=== PATIENT | male | born 1985 | race Two or more races ===

== ENCOUNTER 2017-04-06 13:19 | Emergency (ER) | payer OTHER ==
[2017-04-06] MEDS ORDERED: OXYCODONE-ACETAMINOPHEN 5-325 MG TABLET PO ONE (13:35)
[2017-04-06 13:37] VITALS: BP 133/96
--- NOTE | 2017-04-06 13:39 | ER Document Report ---
ED Medical Screen (RME) - General Stated Complaint: CHEST/ARM INJURY Time Seen by Provider: 04/06/17 13:35 Mode of Arrival: Wheelchair Information source: Patient - HPI Patient complains to provider of: Right-sided chest wall pain Onset: Just prior to arrival Onset/Duration: Sudden Quality of pain: Achy Severity: Moderate Pain Level: 5 Associated Symptoms: Shortness of breath Exacerbated by: Movement, Coughing, Deep breathing Relieved by: Denies Similar symptoms previously: No Recently seen / treated by doctor: No Notes: 04/06/17 13:38 Patient is a 31-year-old male who presents to the emergency room status post injury causing pain to his right anterior chest wall, patient was at work, he was taking a break, when a pallet fell over landing directly across his chest
[2017-04-06] MEDS ORDERED: DIPH/PERTUSS(ACELL)/TETANUS VAC/PF 0.5 ML SYR (>=10YO) IM ONE (13:43)
--- NOTE | 2017-04-06 14:33 | RADIOLOGY REPORT (SQ) ---
EXAM DESCRIPTION: SHOULDER LEFT 2 OR MORE VIEWS COMPLETED DATE/TIME: 04/06/2017 2:02 pm REASON FOR STUDY: injury COMPARISON: None. NUMBER OF VIEWS: Three views. TECHNIQUE: Internal rotation, external rotation, and Y view images acquired of the left shoulder. LIMITATIONS: None. FINDINGS: MINERALIZATION: Normal. BONES: No acute fracture or dislocation. No worrisome bone lesions. JOINTS: No dislocation. VISUALIZED LUNGS AND RIBS: No pneumothorax. No rib fracture. SOFT TISSUES: No radiopaque foreign body. OTHER: No other significant finding. IMPRESSION: NEGATIVE STUDY OF THE LEFT SHOULDER. NO RADIOGRAPHIC EVIDENCE OF ACUTE INJURY. TECHNICAL DOCUMENTATION: JOB ID: [id number] [employer]- All Rights Reserved
--- NOTE | 2017-04-06 14:35 | RADIOLOGY REPORT (SQ) ---
EXAM DESCRIPTION: RIBS RIGHT W/PA CHEST COMPLETED DATE/TIME: 04/06/2017 2:02 pm REASON FOR STUDY: INJURY COMPARISON: None. TECHNIQUE: Frontal view of the chest and additional views of the right ribs acquired. NUMBER OF VIEWS: Three view. LIMITATIONS: None. FINDINGS: FRONTAL CXR: No pneumothorax. No pleural effusion. No atelectasis or infiltrates. RIBS: No displaced rib fractures. No lytic or blastic bony lesions. OTHER: No other significant finding. IMPRESSION: NO PNEUMOTHORAX. NO DISPLACED RIB FRACTURES. COMMENT: SITE OF TRAUMA/COMPLAINT MARKED/STAMP COMPLETED: No TECHNICAL DOCUMENTATION: JOB ID: [id number] [employer]- All Rights Reserved
--- NOTE | 2017-04-06 15:54 | ER Document Report ---
ED General - General Chief Complaint: Blunt Trauma Stated Complaint: CHEST/ARM INJURY Time Seen by Provider: 04/06/17 13:35 Mode of Arrival: Wheelchair TRAVEL OUTSIDE OF THE [place] IN LAST 30 DAYS: No - HPI Patient complains to provider of: Chest wall pain shoulder pain Notes: Patient is coming in for evaluation chest wall pain shoulder pain. Patient is speaking and translation was obtained. Our registration personnel Ange. Patient was working when a stack of wooden pallets fell on the patient. Patient states they were pinned underneath him for some time patient is currently complaining of upper chest pain and upper shoulder pain and back pain. Denies any loss of consciousness. Patient is in no obvious distress upon my evaluation. - Related Data Allergies/Adverse Reactions: No Known Allergies Allergy (Verified 04/06/17 13:37) Past Medical History - General Information source: Patient - Social History Smoking Status: Never Smoker Chew tobacco use (# tins/day): No Frequency of alcohol use: None Family History: Reviewed & Not Pertinent Patient has suicidal ideation: No Patient has homicidal ideation: No Renal/ Medical History: Denies: Hx Peritoneal Dialysis Review of Systems - Review of Systems Constitutional: No symptoms reported EENT: No symptoms reported Cardiovascular: Chest pain - Wall pain Respiratory: No symptoms reported Gastrointestinal: No symptoms reported Genitourinary: No symptoms reported Male Genitourinary: No symptoms reported Musculoskeletal: No symptoms reported Skin: No symptoms reported Hematologic/Lymphatic: No symptoms reported Neurological/Psychological: No symptoms reported Physical Exam - Vital signs Vitals: Temp Pulse Resp BP Pulse Ox 98.5 F 101 H 24 H 133/96 H 99 04/06/17 13:32 04/06/17 13:32 04/06/17 13:32 04/06/17 13:32 04/06/17 13:32 Interpretation: Normal - General General appearance: Appears well, Alert - HEENT Head: Normocephalic, Atraumatic Eyes: Normal Pupils: PERRL - Respiratory Respiratory status: No respiratory distress Chest status: Tender - His palpation of the left chest also tender to palpation in the paraspinal muscles of the neck bilaterally in the midline tenderness. Patient has some abrasions to the right upper trapezius muscle no deformities. Breath sounds: Normal Chest palpation: Normal - Cardiovascular Rhythm: Regular Heart sounds: Normal auscultation Murmur: No - Abdominal Inspection: Normal Distension: No distension Bowel sounds: Normal Tenderness: Nontender Organomegaly: No organomegaly - Back Back: Normal, Nontender - Extremities General upper extremity: Normal inspection, Nontender, Normal color, Normal ROM , Normal temperature General lower extremity: Normal inspection, Nontender, Normal color, Normal ROM , Normal temperature, Normal weight bearing. No: Jeus's sign - Neurological Neuro grossly intact: Yes Cognition: Normal Orientation: AAOx4 Fletcher Coma Scale Eye Opening: Spontaneous Fletcher Coma Scale Verbal: Oriented Fletcher Coma Scale Motor: Obeys Commands Fletcher Coma Scale Total: 15 Speech: Normal Motor strength normal: LUE, RUE, LLE, RLE Sensory: Normal - Psychological Associated symptoms: Normal affect, Normal mood - Skin Skin Temperature: Warm Skin Moisture: Dry Skin Color: Normal Course - Re-evaluation Re-evalutation: 04/06/17 19:01 Coming in for evaluation of chest wall pain extremity pain after wooden pallets fell on. Patient x-rays are negative for any acute pathology. Patient will be discharged home with pain medications - Vital Signs Vital signs: Temp Pulse Resp BP Pulse Ox 98.5 F 101 H 24 H 133/96 H 99 04/06/17 13:32 04/06/17 13:32 04/06/17 13:32 04/06/17 13:32 04/06/17 13:32 Discharge - Discharge Clinical Impression: Multiple contusions, Chest wall pain Condition: Good Disposition: HOME, SELF-CARE Instructions: Chest Wall Pain ([facility]), Oral Narcotic Medication ([facility]), Anti- Inflammatory Medication ([facility]), Contusion ([facility]) Additional Instructions: Take medication as prescribed. Return to the ER symptoms worsen. He may also use ice and warm packs at home. Prescriptions: Oxycodone HCl 5 mg PO Q6 #20 tablet Forms: Return to Work
== END 2017-04-06 16:46 | disposition home or self-care (01) ==
LOC: ER 13:19
DX: T14.8 Other injury of unspecified body region (principal); S20.411A Abrasion of right back wall of thorax, initial encounter; R07.89 Other chest pain; M25.519 Pain in unspecified shoulder; M54.9 Dorsalgia, unspecified; W20.8XXA Other cause of strike by thrown, projected or falling object, initial encounter; Y99.0 Civilian activity done for income or pay
CPT/HCPCS: 99283